=== PATIENT | male | born 1970 | race Caucasian/White ===

== ENCOUNTER 2017-06-12 12:39 | Inpatient (IN) | payer BC, OTHER ==
[~2017-06-12] VITALS: Ht 185.4 cm; Wt 68.0 kg
[2017-06-12] MEDS ORDERED: LORAZEPAM 2 MG/1 ML VIAL IM PRN (13:45)
[2017-06-12] MEDS ORDERED: MAGNESIUM HYDROXIDE 30 ML LIQUID UDC PO PRN (13:45)
[2017-06-12] MEDS ORDERED: LORAZEPAM 1 MG TABLET PO PRN (13:45)
[2017-06-12] MEDS ORDERED: diphenhydrAMINE 50 MG CAPSULE PO PRN (13:45)
[2017-06-12] MEDS ORDERED: DICYCLOMINE HCL 20 MG TABLET PO PRN (13:45)
[2017-06-12] MEDS ORDERED: DEXTROSE 50% 50 ML DISP.SYRIN IV PRN (13:45)
[2017-06-12] MEDS ORDERED: IBUPROFEN 600 MG TABLET PO PRN (13:45)
[2017-06-12] MEDS ORDERED: ONDANSETRON 4 MG/2 ML VIAL IM PRN (13:45)
[2017-06-12] MEDS ORDERED: MAG HYDROX/AL HYDROX/SIMETH 30 ML LIQUID UDC PO PRN (13:45)
[2017-06-12] MEDS ORDERED: LOPERAMIDE HCL 2 MG CAPSULE PO PRN ×2 (13:45)
[2017-06-12] MEDS ORDERED: ONDANSETRON ODT 4 MG TAB.RAPDIS SL PRN (13:45)
[2017-06-12] MEDS ORDERED: NICOTINE POLACRILEX 4 MG GUM-PK OF TEN BC PRN (13:45)
[2017-06-12] MEDS ORDERED: NICOTINE 14 MG/24HR PATCH TD PRN (13:45)
[2017-06-12] MEDS ORDERED: THIAMINE HCL 200 MG/2 ML VIAL IM ONE (13:45)
[2017-06-12] MEDS ORDERED: MIRALAX 17 GM POWD.PACK PO PRN (13:45)
[2017-06-12] MEDS ORDERED: INSU100C (14:39)
[2017-06-12] MEDS ORDERED: INSU100V7 SQ (14:40)
[2017-06-12] MEDS ORDERED: [UNRECOGNIZED DRUG - CODE] PO (14:43)
[2017-06-12] MEDS ORDERED: ASPI81TA31 PO (14:44)
[2017-06-12] MEDS ORDERED: FAMO1TAB29 PO (14:45)
[2017-06-12] MEDS ORDERED: ATOR40TA PO (14:47)
[2017-06-12] MEDS: BLOOD SUGAR DIAGNOSTIC 1 EACH STRIP VI SCH ×3 (14:48→21:00)
[2017-06-12 14:52] LABS: BASOPHILS % (AUTO) 0.5 % (0.0-2.0); EOSINOPHILS % (AUTO) 0.8 % (0.0-7.0); HEMATOCRIT 48.7 % (36.7-47.1); HEMOGLOBIN 16.6 g/dL (12.5-16.3); LYMPHOCYTES # (AUTO) 1.7 K/uL (20.0-40.0); LYMPHOCYTES % (AUTO) 29.3 % (20.5-51.5); MEAN CORPUSCULAR HEMOGLOBIN 35.2 uug (23.8-33.4); MEAN CORPUSCULAR HGB CONC 34 g/dL (32.5-36.3); MEAN CORPUSCULAR VOLUME 103.4 fL (73.0-96.2); MONOCYTES # (AUTO) 0.6 K/uL (2.0-10.0); MONOCYTES % (AUTO) 9.8 % (0.0-11.0); NEUTROPHILS # (AUTO) 3.5 K/uL (1.8-8.9); NEUTROPHILS % (AUTO) 59.6 % (38.5-71.5); PLATELET COUNT (AUTO) 237 K/uL (152-348); RED BLOOD CELL COUNT(AUTO) 4.71 MIL/uL (4.06-5.63); WHITE BLOOD COUNT (AUTO) 5.8 K/uL (3.6-10.2)
[2017-06-12] MEDS ORDERED: LISI1TAB9 PO (15:02)
[2017-06-12 15:20] LABS: *AMPHETAMINE, URINE NEGATIVE (NEGATIVE); *BARBITURATE, URINE NEGATIVE (NEGATIVE); *CANNABINOID, URINE NEGATIVE (NEGATIVE); *COCCAINE, URINE NEGATIVE (NEGATIVE); *OPIATE, URINE NEGATIVE (NEGATIVE); *PHENCYCLIDINE SCREEN,URINE NEGATIVE (NEGATIVE)
[2017-06-12 15:28] LABS: ALKALINE PHOSPHATASE 102 U/L (50-136); AMYLASE 45 U/L (25-115); ASPARTATE AMINOTRANSFERASE 284 U/L (15-37); BILIRUBIN,TOTAL 0.4 mg/dL (0.2-1.0); CARBON DIOXIDE 26 mmol/L (21-32); CHLORIDE 104 mmol/L (98-107); CREATININE 0.8 mg/dL (0.6-1.3); ETHANOL > 600 MG/DL (0-0); GLUCOSE 187 mg/dL (74-106); MAGNESIUM 1.9 mg/dL (1.8-2.4); POTASSIUM 4.2 mmol/L (3.5-5.1); UREA NITROGEN, BLOOD 13 mg/dL (7-18)
[2017-06-12] MEDS: CLONIDINE HCL 0.1 MG TABLET PO PRN (15:43)
[2017-06-12] MEDS ORDERED: THIAMINE HCL 100 MG TABLET PO ONE (15:45)
[2017-06-12 15:57] LABS: ALANINE AMINOTRANSFERASE 295 U/L (16-63)
[2017-06-12 16:23] LABS: THYROID STIMULATING HORMONE 0.874 mIU/mL (0.358-3.740)
[2017-06-12] MEDS ORDERED: BLOOD SUGAR DIAGNOSTIC 1 EACH STRIP VI SCH (16:30)
[2017-06-12 16:45] VITALS: BP 133/88
[2017-06-12] MEDS ORDERED: HYDROXYZINE PAMOATE 25 MG CAPSULE PO ONE (17:45)
[2017-06-12] MEDS: INSULIN REGULAR, HUMAN 300 UNIT/3 ML VIAL SQ PRN (17:45)
[2017-06-12 20:00] VITALS: BP 142/89
[2017-06-12] MEDS ORDERED: LORAZEPAM 1 MG TABLET PO SCH (21:00)
[2017-06-12] MEDS: ATORVASTATIN 40MG TAB PO SCH (22:13)
[2017-06-12] MEDS: LANTUS SQ SCH (22:29)
[2017-06-13 04:00] VITALS: BP 130/85
[2017-06-13] MEDS: LORAZEPAM 1 MG TABLET PO PRN (04:52)
[2017-06-13] MEDS: BLOOD SUGAR DIAGNOSTIC 1 EACH STRIP VI SCH ×4 (07:46→21:07)
[2017-06-13] MEDS: IBUPROFEN 400 MG TABLET PO PRN (07:46)
[2017-06-13 08:00] VITALS: BP 143/93
[2017-06-13] MEDS: INSULIN REGULAR, HUMAN 300 UNIT/3 ML VIAL SQ PRN ×4 (08:34→21:16)
[2017-06-13] MEDS: LORAZEPAM 1 MG TABLET PO SCH ×4 (08:35→21:08)
[2017-06-13] MEDS: MULTIVITAMINS,THERAPEUTIC TABLET PO SCH (08:36)
[2017-06-13] MEDS: LISINOPRIL 10 MG TABLET PO SCH (08:36)
[2017-06-13] MEDS: FOLIC ACID 1 MG TABLET PO SCH (08:36)
[2017-06-13] MEDS: THIAMINE HCL 100 MG TABLET PO SCH (08:36)
[2017-06-13] MEDS: ASPIRIN 81 MG PO SCH (08:38)
[2017-06-13] MEDS ORDERED: TUBERCULIN,PURIF.PROT.DERIV. 5 TU/0.1 ML TEST ID ONE (09:00)
[2017-06-13 12:57] VITALS: BP 139/88
[2017-06-13 13:16] LABS: HEPATITIS B SURFACE AG Negative (Negative)
[2017-06-13 16:55] VITALS: BP 145/94
[2017-06-13 17:15] VITALS: BP 145/94
[2017-06-13] MEDS: CLONIDINE HCL 0.1 MG TABLET PO PRN (17:25)
[2017-06-13 20:26] VITALS: BP 130/85
[2017-06-13] MEDS: ATORVASTATIN 40MG TAB PO SCH (21:08)
[2017-06-13] MEDS: LANTUS SQ SCH (21:17)
[2017-06-13] MEDS: INSULIN REGULAR, HUMAN 300 UNITS/3 ML VIAL SQ PRN (23:42)
[2017-06-14 00:40] VITALS: BP 122/79
[2017-06-14 04:24] VITALS: BP 127/76
[2017-06-14] MEDS: ACETAMINOPHEN 325 MG TABLET PO PRN (07:38)
[2017-06-14] MEDS: IBUPROFEN 400 MG TABLET PO PRN ×3 (07:38→16:34)
[2017-06-14] MEDS: CLONIDINE HCL 0.1 MG TABLET PO PRN ×2 (07:39→21:18)
[2017-06-14 08:00] VITALS: BP 159/105
[2017-06-14] MEDS: BLOOD SUGAR DIAGNOSTIC 1 EACH STRIP VI SCH ×4 (08:16→21:20)
[2017-06-14] MEDS: LORAZEPAM 1 MG TABLET PO SCH ×3 (08:30→21:18)
[2017-06-14] MEDS: ASPIRIN 81 MG PO SCH (08:30)
[2017-06-14] MEDS: MULTIVITAMINS,THERAPEUTIC TABLET PO SCH (08:30)
[2017-06-14] MEDS: THIAMINE HCL 100 MG TABLET PO SCH (08:31)
[2017-06-14] MEDS: LISINOPRIL 10 MG TABLET PO SCH (08:31)
[2017-06-14] MEDS: INSULIN REGULAR, HUMAN 300 UNIT/3 ML VIAL SQ PRN ×3 (08:34→16:37)
[2017-06-14] MEDS: FOLIC ACID 1 MG TABLET PO SCH (08:38)
[2017-06-14] MEDS: METHOCARBAMOL 500 MG TABLET PO PRN (12:09)
[2017-06-14 12:30] VITALS: BP 137/104
[2017-06-14] MEDS ORDERED: LOSARTAN POTASSIUM 50 MG TABLET PO ONE (15:00)
[2017-06-14 16:00] VITALS: BP 133/99
[2017-06-14] MEDS: LORAZEPAM 1 MG TABLET PO PRN (16:35)
[2017-06-14 20:00] VITALS: BP 138/93
[2017-06-14] MEDS: GABAPENTIN 300 MG CAPSULE PO SCH (21:18)
[2017-06-14] MEDS: LANTUS SQ SCH (21:21)
[2017-06-14] MEDS: ATORVASTATIN 40MG TAB PO SCH (21:22)
[2017-06-15] MEDS ORDERED: KETOROLAC TROMETHAMINE 30 MG INJ IM ONE (06:30)
[2017-06-15 08:00] VITALS: BP 124/85
[2017-06-15] MEDS: BLOOD SUGAR DIAGNOSTIC 1 EACH STRIP VI SCH ×4 (08:01→21:54)
[2017-06-15] MEDS: ACETAMINOPHEN 325 MG TABLET PO PRN (08:08)
[2017-06-15] MEDS: FOLIC ACID 1 MG TABLET PO SCH (08:08)
[2017-06-15] MEDS: INSULIN REGULAR, HUMAN 300 UNIT/3 ML VIAL SQ PRN ×3 (08:08→16:53)
[2017-06-15] MEDS: ASPIRIN 81 MG PO SCH (08:08)
[2017-06-15] MEDS: THIAMINE HCL 100 MG TABLET PO SCH (08:08)
[2017-06-15] MEDS: LISINOPRIL 10 MG TABLET PO SCH (08:09)
[2017-06-15] MEDS: MULTIVITAMINS,THERAPEUTIC TABLET PO SCH (08:09)
[2017-06-15] MEDS: GABAPENTIN 300 MG CAPSULE PO SCH ×3 (08:09→21:53)
[2017-06-15] MEDS: LOSARTAN POTASSIUM 50 MG TABLET PO SCH (08:09)
[2017-06-15] MEDS ORDERED: LORAZEPAM 1 MG TABLET PO SCH ×2 (09:00→21:00)
[2017-06-15] MEDS ORDERED: IBUPROFEN 600 MG TABLET PO PRN (11:30)
[2017-06-15] MEDS ORDERED: BENZOCAINE ORAL CARE 12 ML BOTTLE MM PRN (11:30)
[2017-06-15] MEDS: LORAZEPAM 1 MG TABLET PO SCH ×2 (12:10→16:50)
[2017-06-15 12:54] VITALS: BP 119/86
[2017-06-15 16:55] VITALS: BP 119/86
[2017-06-15 20:00] VITALS: BP 138/94
[2017-06-15] MEDS: CLONIDINE HCL 0.1 MG TABLET PO PRN (20:42)
[2017-06-15] MEDS: ATORVASTATIN 40MG TAB PO SCH (21:53)
[2017-06-15] MEDS: LANTUS SQ SCH (21:54)
[2017-06-15] MEDS: INSULIN REGULAR, HUMAN 300 UNITS/3 ML VIAL SQ PRN (21:57)
[2017-06-16] MEDS: BLOOD SUGAR DIAGNOSTIC 1 EACH STRIP VI SCH ×4 (07:39→21:07)
[2017-06-16] MEDS: METHOCARBAMOL 500 MG TABLET PO PRN (07:51)
[2017-06-16] MEDS: GABAPENTIN 300 MG CAPSULE PO SCH ×3 (07:51→21:01)
[2017-06-16] MEDS: MULTIVITAMINS,THERAPEUTIC TABLET PO SCH (07:51)
[2017-06-16] MEDS: THIAMINE HCL 100 MG TABLET PO SCH (07:52)
[2017-06-16] MEDS: FOLIC ACID 1 MG TABLET PO SCH (07:52)
[2017-06-16] MEDS: LOSARTAN POTASSIUM 50 MG TABLET PO SCH (07:52)
[2017-06-16] MEDS: ASPIRIN 81 MG PO SCH (07:54)
[2017-06-16] MEDS: INSULIN REGULAR, HUMAN 300 UNIT/3 ML VIAL SQ PRN ×3 (07:59→16:50)
[2017-06-16 08:00] VITALS: BP 139/90
[2017-06-16] MEDS: LISINOPRIL 10 MG TABLET PO SCH (08:09)
[2017-06-16] MEDS ORDERED: LORAZEPAM 1 MG TABLET PO SCH ×3 (09:00→21:00)
[2017-06-16 12:00] VITALS: BP 127/84
[2017-06-16] MEDS: KETOROLAC TROMETHAMINE 30 MG INJ IM PRN (12:16)
[2017-06-16] MEDS: ESCITALOPRAM OXALATE 10 MG TABLET PO SCH (14:17)
[2017-06-16 16:00] VITALS: BP 124/86
[2017-06-16 20:00] VITALS: BP 132/98
[2017-06-16] MEDS ORDERED: LOSARTAN POTASSIUM 50 MG TABLET PO SCH (21:00)
[2017-06-16] MEDS: ATORVASTATIN 40MG TAB PO SCH (21:02)
[2017-06-16] MEDS: LANTUS SQ SCH (21:02)
[2017-06-16] MEDS: INSULIN REGULAR, HUMAN 300 UNITS/3 ML VIAL SQ PRN (21:12)
[2017-06-17] MEDS: BLOOD SUGAR DIAGNOSTIC 1 EACH STRIP VI SCH ×4 (07:18→21:24)
[2017-06-17] MEDS: INSULIN REGULAR, HUMAN 300 UNIT/3 ML VIAL SQ PRN ×3 (07:22→16:38)
[2017-06-17 08:00] VITALS: BP 136/95
[2017-06-17] MEDS: LISINOPRIL 10 MG TABLET PO SCH (08:30)
[2017-06-17] MEDS: ESCITALOPRAM OXALATE 10 MG TABLET PO SCH (08:30)
[2017-06-17] MEDS: GABAPENTIN 300 MG CAPSULE PO SCH ×3 (08:31→21:20)
[2017-06-17] MEDS: THIAMINE HCL 100 MG TABLET PO SCH (08:31)
[2017-06-17] MEDS: LOSARTAN POTASSIUM 50 MG TABLET PO SCH (08:31)
[2017-06-17] MEDS: FOLIC ACID 1 MG TABLET PO SCH (08:31)
[2017-06-17] MEDS: LORAZEPAM 1 MG TABLET PO SCH ×3 (08:32→21:20)
[2017-06-17] MEDS: MULTIVITAMINS,THERAPEUTIC TABLET PO SCH (08:32)
[2017-06-17] MEDS: KETOROLAC TROMETHAMINE 30 MG INJ IM PRN (08:33)
[2017-06-17] MEDS: ASPIRIN 81 MG PO SCH (08:34)
[2017-06-17] MEDS ORDERED: LORAZEPAM 1 MG TABLET PO SCH (09:00)
[2017-06-17 12:00] VITALS: BP 139/96
[2017-06-17 16:00] VITALS: BP 142/91
[2017-06-17] MEDS ORDERED: LOSA50TA3 PO (19:41)
[2017-06-17] MEDS ORDERED: CLON0.1T14 PO (19:41)
[2017-06-17] MEDS ORDERED: METH500T6 PO (19:41)
[2017-06-17] MEDS ORDERED: DIPH50CA37 PO (19:41)
[2017-06-17] MEDS ORDERED: IBUP-1955 PO (19:41)
[2017-06-17] MEDS ORDERED: ESCI10TA PO (19:41)
[2017-06-17] MEDS ORDERED: GABA-534 PO ×2 (19:41)
[2017-06-17 20:00] VITALS: BP 137/95
[2017-06-17] MEDS: ATORVASTATIN 40MG TAB PO SCH (21:20)
[2017-06-17] MEDS: LANTUS SQ SCH (21:21)
[2017-06-17] MEDS: INSULIN REGULAR, HUMAN 300 UNITS/3 ML VIAL SQ PRN (21:26)
[2017-06-18] MEDS: BLOOD SUGAR DIAGNOSTIC 1 EACH STRIP VI SCH ×4 (07:43→21:02)
[2017-06-18] MEDS: INSULIN REGULAR, HUMAN 300 UNIT/3 ML VIAL SQ PRN ×3 (07:45→16:38)
[2017-06-18 08:00] VITALS: BP 149/89
[2017-06-18] MEDS: ESCITALOPRAM OXALATE 10 MG TABLET PO SCH (08:23)
[2017-06-18] MEDS: FOLIC ACID 1 MG TABLET PO SCH (08:23)
[2017-06-18] MEDS: MULTIVITAMINS,THERAPEUTIC TABLET PO SCH (08:23)
[2017-06-18] MEDS: THIAMINE HCL 100 MG TABLET PO SCH (08:23)
[2017-06-18] MEDS: LOSARTAN POTASSIUM 50 MG TABLET PO SCH (08:23)
[2017-06-18] MEDS: KETOROLAC TROMETHAMINE 30 MG INJ IM PRN (08:24)
[2017-06-18] MEDS: GABAPENTIN 300 MG CAPSULE PO SCH ×3 (08:24→20:57)
[2017-06-18] MEDS: ASPIRIN 81 MG PO SCH (08:25)
[2017-06-18] MEDS ORDERED: LORAZEPAM 1 MG TABLET PO SCH (09:00)
[2017-06-18 12:00] VITALS: BP 143/102
[2017-06-18] MEDS: CLONIDINE HCL 0.1 MG TABLET PO PRN ×2 (12:14→18:33)
[2017-06-18 16:00] VITALS: BP 139/87
[2017-06-18 20:00] VITALS: BP 135/89
[2017-06-18] MEDS: ATORVASTATIN 40MG TAB PO SCH (20:57)
[2017-06-18] MEDS ORDERED: INSULIN GLARGINE,HUM 300 UNITS/3 ML CARTRIDGE SQ SCH (21:00)
[2017-06-18] MEDS: INSULIN REGULAR, HUMAN 300 UNITS/3 ML VIAL SQ PRN (21:03)
[2017-06-19] MEDS: BLOOD SUGAR DIAGNOSTIC 1 EACH STRIP VI SCH (07:58)
[2017-06-19 08:00] VITALS: BP 110/79
[2017-06-19] MEDS: ESCITALOPRAM OXALATE 10 MG TABLET PO SCH (08:08)
[2017-06-19] MEDS: GABAPENTIN 300 MG CAPSULE PO SCH (08:09)
[2017-06-19] MEDS: THIAMINE HCL 100 MG TABLET PO SCH (08:09)
[2017-06-19] MEDS: FOLIC ACID 1 MG TABLET PO SCH (08:09)
[2017-06-19] MEDS: MULTIVITAMINS,THERAPEUTIC TABLET PO SCH (08:09)
[2017-06-19] MEDS: ASPIRIN 81 MG PO SCH (08:09)
[2017-06-19 08:10] VITALS: BP 110/79
[2017-06-19] MEDS: LOSARTAN POTASSIUM 50 MG TABLET PO SCH (08:10)
[2017-06-19] MEDS: INSULIN REGULAR, HUMAN 300 UNIT/3 ML VIAL SQ PRN (08:12)
== END 2017-06-19 09:20 | disposition other institution (70) | DRG 895 ==
LOC: SRC 12:51
PROVIDERS: ADMIT Internal Medicine; ATTEND Internal Medicine
PROC: HZ2ZZZZ Detoxification Services for Substance Abuse Treatment (ICD-10-PCS; principal; 2017-06-12)
PROC: HZ31ZZZ Individual Counseling for Substance Abuse Treatment, Behavioral (ICD-10-PCS; 2017-06-15)
PROC: HZ41ZZZ Group Counseling for Substance Abuse Treatment, Behavioral (ICD-10-PCS; 2017-06-15)
DX: F10.232 Alcohol dependence with withdrawal with perceptual disturbance (principal); E11.40 Type 2 diabetes mellitus with diabetic neuropathy, unspecified; E11.69 Type 2 diabetes mellitus with other specified complication; F33.1 Major depressive disorder, recurrent, moderate; K70.10 Alcoholic hepatitis without ascites; E78.5 Hyperlipidemia, unspecified; Y90.8 Blood alcohol level of 240 mg/100 ml or more; F12.10 Cannabis abuse, uncomplicated; F17.210 Nicotine dependence, cigarettes, uncomplicated; F41.9 Anxiety disorder, unspecified; Z81.1 Family history of alcohol abuse and dependence; Z79.4 Long term (current) use of insulin; Z79.82 Long term (current) use of aspirin; N52.1 Erectile dysfunction due to diseases classified elsewhere; I15.9 Secondary hypertension, unspecified; Z81.8 Family history of other mental and behavioral disorders; R26.81 Unsteadiness on feet
CPT/HCPCS: 36415; 70030-TC; 80307; 83735; 84443; 85025; 86580; 86592; 86705; 86803; 87340; 87806; A9150; G0480; J1815; J1885; Q0163